=== PATIENT | male | born 1945 | race Caucasian/White ===

== ENCOUNTER 2018-01-12 05:41 | Inpatient (IN) | payer MEDICARE, BC ==
[2018-01-12] MEDS ORDERED: Levofloxacin 500 mg/D5W 100 ml Premix Bag ONE (06:14)
[2018-01-12] MEDS ORDERED: Heparin 5,000 UNITS/ML VIAL ONE (06:33)
[2018-01-12] MEDS ORDERED: Protamine Sulfate 50 MG/5 ML VIAL ONE (06:33)
[2018-01-12] MEDS ORDERED: Bupivacaine/Epinephrine 0.25% 30 ML VIAL ONE (06:33)
[2018-01-12 06:54] LABS: #Basophils 0.1 thou/uL (0.0-0.2); #Eosinphils 0.2 thou/uL (0.0-0.7); #Lymphocytes 1.8 thou/uL (1.20-3.40); #Monocytes 0.5 thou/uL (0.11-0.59); #Neutrophils 3.5 thou/uL (1.40-6.50); %Eosinophils 3.2 % (0.0-10.0); %Lymphocytes 29.4 % (21.0-51.0); %Monocytes 8.2 % (0.0-10.0); %Neutrophils 58.2 % (42.0-75.0); Mean Corpuscular HGB CONC 34.8 g/dL (32.0-36.0); Mean Corpuscular Hemoglobin 30.1 pg (27.0-31.0); Mean Corpuscular Volume 86.5 fl (80.0-94.0); Mean Platelet Volume 6.6 fL (7.4-10.4); Platelet Count 206 thou/uL (130-400); RBC Distribution Width 12.1 % (11.5-14.5); Red Blood Cell (RBC) Count 4.98 mill/uL (4.70-6.10)
[2018-01-12] MEDS ORDERED: Fentanyl 100 MCG/2 ML VIAL ONE ×2 (06:55→09:24)
[2018-01-12] MEDS ORDERED: Phenylephrine HCL 10 MG/ML VIAL ONE (06:55)
[2018-01-12] MEDS ORDERED: hydrALAZINE 20 MG/ML VIAL ONE (06:55)
[2018-01-12] MEDS ORDERED: Nitroglycerin 50 MG/250 ML BOT 0 ML ONE (06:55)
[2018-01-12 07:15] LABS: Anion Gap 13 mmol/L (10-20); BUN (Urea Nitrogen) 15 mg/dL (8.4-25.7); Calc. Creatinine Clearance 145 mL/min (70-130); Calcium 9.2 mg/dL (7.8-10.44); Carbon Dioxide 25 mmol/L (23-31); Chloride 107 mmol/L (98-107); Estimated GFR-MDRD Greater than 90; Glucose 103 mg/dL (80-115); Potassium 4.4 mmol/L (3.5-5.1); Sodium 141 mmol/L (136-145)
--- NOTE | 2018-01-12 09:47 | OP ---
DATE OF PROCEDURE: 01/12/2018 PREOPERATIVE DIAGNOSIS: Critical right carotid stenosis. POSTOPERATIVE DIAGNOSIS: Critical right carotid stenosis. PROCEDURE: Right carotid endarterectomy with bovine patch angioplasty. SURGEON: Jason Mcdonald M.D. BOLOGNA LACER: None. ANESTHESIA: General. ESTIMATED BLOOD LOSS: Less than 100. PROCEDURE IN DETAIL: After adequate anesthesia had been obtained, ultrasound was utilized, shoulder roll placed and head turned to the left. Table was rotated left. The patient prepped and draped. I ncision was made along the anterior border of the sternocleidomastoid muscle, dividing the platysma, rotating SCM laterally. Current common carotid artery was deep to the jugular vein and the space in the neck was quite deep as well. After controlling the common, internal and external carotid arterie s, visualizing the vagus nerve and avoiding it and not visualizing the hypoglossal nerve, the patient was heparinized, clamps applied, arteriotomy performed through a very critical stenosis and a 12-José nch shunt placed. Following this, endarterectomy was performed with nice tapering distally. There w as a small branch off the internal carotid artery posteriorly that did bleed during the case. Follow ing endarterectomy, the area was thoroughly irrigated and any loose debris removed and a bovine patch secured with a running 6-0 Prolene suture. Prior to completing the suture line, the shunt was remov ed, vessels back flushed and forward flushed and flow restored up the external and then internal anderson tid artery. Protamine was given to reverse the heparin partially and the wound was then irrigated an d closed in layers. The patient is to be taken to the ICU in guarded condition.
[2018-01-12] MEDS ORDERED: Morphine 4 MG/ML VIAL ONE (10:39)
[2018-01-12] MEDS ORDERED: Acetaminophen 325 MG TAB PO PRN (11:35)
[2018-01-12] MEDS ORDERED: Ondansetron HCl/PF 4 MG/2 ML Vial IVP PRN (11:35)
[2018-01-12] MEDS ORDERED: Phenylephrine 10 MG/NS 250 ML 250 ML IVPB PRN (11:35)
[2018-01-12] MEDS ORDERED: HYDROcodone/Acetaminophen 5/325 mg Tablet PO PRN (11:35)
[2018-01-12] MEDS ORDERED: Sodium Chloride 0.9% 1,000 ML IV SCH (11:35)
[2018-01-12] MEDS: Fentanyl 100 MCG/2 ML VIAL SLOW IVP PRN ×2 (12:56→17:43)
[2018-01-12 17:13] VITALS: BMI 31.4
[2018-01-13] MEDS ORDERED: Sterile Water 10 ML VIAL FS SCH (02:00)
[2018-01-13] MEDS ORDERED: Ziprasidone 20 MG VIAL IM SCH (02:00)
[2018-01-13] MEDS ORDERED: Ziprasidone 20 MG VIAL ONE (02:05)
[2018-01-13 04:24] VITALS: TEMP 98.2
--- NOTE | 2018-01-13 13:52 | DIS ---
HOSPITAL COURSE: This is a 72-year-old male with a critical right carotid stenosis that underwent en darterectomy on 01/12/2018. Postoperatively, he was neurologically intact. The night of surgery, he experienced some psychotic episode, perhaps related to his dementia and unfamiliar environment requi ring restraints and Geodon. The following day, the patient was resting comfortably, but became agita cindy easily. It was recommended that discharge to a familiar environment at home may be most benefici al and assisted care had been arranged by family. The patient will be discharged on, aspirin, atorva statin 20 mg a day. He had some mild blood pressure elevations in the hospital, possibly related to his hospitalization and no blood pressure medication will be prescribed at this time and family has b manda asked to check his blood pressures on a regular basis.
== END 2018-01-13 08:45 | disposition home or self-care (01) | DRG 39 ==
LOC: SURG A 05:41 → CCU 11:41
PROVIDERS: ADMIT Thoracic Surgery (Cardiothoracic Vascular Surgery); ATTEND Thoracic Surgery (Cardiothoracic Vascular Surgery)
PROC: 03CK0ZZ Extirpation of Matter from Right Internal Carotid Artery, Open Approach (ICD-10-PCS; principal; 2018-01-12)
PROC: 03UK0KZ Supplement Right Internal Carotid Artery with Nonautologous Tissue Substitute, Open Approach (ICD-10-PCS; 2018-01-12)
DX: I65.21 Occlusion and stenosis of right carotid artery (principal); G30.9 Alzheimer's disease, unspecified; F02.80 Dementia in other diseases classified elsewhere, unspecified severity, without behavioral disturbance, psychotic disturbance, mood disturbance, and anxiety; M10.9 Gout, unspecified; Z79.82 Long term (current) use of aspirin; I10 Essential (primary) hypertension
CPT/HCPCS: 80048; 85025; 93005; 93010; A4216; J0360; J1642; J1644; J1956; J2270; J2370; J2720; J3010; J3486; J7050

== ENCOUNTER 2018-08-17 14:59 | Emergency (ER) | payer MEDICARE, BC ==
[2018-08-17 16:32] LABS: #Basophils 0.1 thou/uL (0.0-0.2); #Eosinphils 0.2 thou/uL (0.0-0.7); #Lymphocytes 2.5 thou/uL (1.20-3.40); #Monocytes 0.6 thou/uL (0.11-0.59); #Neutrophils 6.5 thou/uL (1.40-6.50); %Basophils 0.7 % (0.0-1.0); %Eosinophils 1.8 % (0.0-10.0); %Lymphocytes 25.1 % (21.0-51.0); %Monocytes 6.3 % (0.0-10.0); %Neutrophils 66.1 % (42.0-75.0); Hemoglobin 15.2 g/dL (14.0-18.0); Mean Corpuscular HGB CONC 33.2 g/dL (32.0-36.0); Mean Corpuscular Hemoglobin 29.1 pg (27.0-31.0); Mean Corpuscular Volume 87.6 fL (78.0-98.0); Mean Platelet Volume 6.9 fL (7.4-10.4); Platelet Count 274 thou/uL (130-400); Red Blood Cell (RBC) Count 5.22 mill/uL (4.70-6.10); White Blood Cell (WBC) Count 9.8 thou/uL (4.8-10.8)
[2018-08-17 16:52] LABS: Acetaminophen Less than 6.0 mcg/mL (10.0-30.0); Alcohol Less than 10 mg/dL (Less than 10); Salicylate Less than 8.0 mg/dL (15.0-30.0)
[2018-08-17 16:54] LABS: ALT (SGPT) 28 U/L (8-55); AST (SGOT) 25 U/L (5-34); Albumin 4.5 g/dL (3.4-4.8); Alkaline Phosphatase 80 U/L (40-150); Anion Gap 15 mmol/L (10-20); BUN (Urea Nitrogen) 26 mg/dL (8.4-25.7); Bilirubin, Total 0.4 mg/dL (0.2-1.2); CK (CPK) 243 U/L (30-200); Calc. Creatinine Clearance 0 mL/min (70-130); Calcium 9.9 mg/dL (7.8-10.44); Carbon Dioxide 20 mmol/L (23-31); Chloride 107 mmol/L (98-107); Estimated GFR-MDRD 85; Globulin 2.8 g/dL (2.4-3.5); Glucose 99 mg/dL (83-110); Potassium 4.3 mmol/L (3.5-5.1); Protein, Total 7.3 g/dL (5.8-8.1); Sodium 138 mmol/L (136-145)
--- NOTE | 2018-08-17 19:11 | CT ---
CT BRAIN 08/17/18 HISTORY: Altered mental status. Noncontrast enhanced CT brain obtained. CT images demonstrate cortical atrophy. No evidence of acute intracranial masses, hemorrhages, stroke s or contusions seen. IMPRESSION: Cortical atrophy and deep white matter ischemic changes. No acute intracranial abnormalities seen. POS: [facility]
[2018-08-17] MEDS ORDERED: Ziprasidone 20 MG CAP ONE (20:07)
[2018-08-17] MEDS ORDERED: Ziprasidone 20 MG CAP PO SCH (20:15)
[2018-08-17] MEDS ORDERED: Lorazepam 1 MG TAB ONE (21:55)
== END 2018-08-18 06:26 ==
LOC: ERS 14:59
DX: F23 Brief psychotic disorder (principal); F03.90 Unspecified dementia, unspecified severity, without behavioral disturbance, psychotic disturbance, mood disturbance, and anxiety
CPT/HCPCS: 36415; 70450; 80053; 80307; 82550; 84443; 85025; 93005

== ENCOUNTER 2019-04-22 10:41 | Emergency (ER) | payer MEDICARE, BC ==
[2019-04-22] MEDS ORDERED: Ketorolac Tromethamine 30 MG/ML VIAL ONE (11:36)
== END 2019-04-22 11:57 | disposition home or self-care (01) ==
LOC: ERS 10:41
DX: S39.012A Strain of muscle, fascia and tendon of lower back, initial encounter (principal); F03.90 Unspecified dementia, unspecified severity, without behavioral disturbance, psychotic disturbance, mood disturbance, and anxiety; X50.9XXA Other and unspecified overexertion or strenuous movements or postures, initial encounter
CPT/HCPCS: 96372; 99283; J1885

== ENCOUNTER 2019-05-03 09:22 | Observation (INO) | payer MEDICARE, BC ==
[2019-05-03 09:58] LABS: #Eosinphils 0.1 thou/uL (0.0-0.7); #Lymphocytes 1.2 thou/uL (1.20-3.40); #Monocytes 0.6 thou/uL (0.11-0.59); #Neutrophils 9.5 thou/uL (1.40-6.50); %Basophils 0.3 % (0.0-1.0); %Eosinophils 0.5 % (0.0-10.0); %Lymphocytes 10.4 % (21.0-51.0); %Monocytes 5.1 % (0.0-10.0); %Neutrophils 83.7 % (42.0-75.0); Mean Corpuscular HGB CONC 33.5 g/dL (32.0-36.0); Mean Corpuscular Hemoglobin 29.2 pg (27.0-31.0); Mean Corpuscular Volume 86.9 fL (78.0-98.0); Mean Platelet Volume 7.1 fL (7.4-10.4); Platelet Count 228 thou/uL (130-400); RBC Distribution Width 11.7 % (11.5-14.5); Red Blood Cell (RBC) Count 5.14 mill/uL (4.70-6.10); White Blood Cell (WBC) Count 11.4 thou/uL (4.8-10.8)
[2019-05-03] MEDS ORDERED: ISOVUE-370 76%-LOCM 1 ML ONE (10:02)
[2019-05-03 10:11] LABS: ALT (SGPT) 18 U/L (8-55); AST (SGOT) 23 U/L (5-34); Albumin 4.1 g/dL (3.4-4.8); Alcohol Less than 10 mg/dL (Less than 10); Alkaline Phosphatase 82 U/L (40-110); Anion Gap 22 mmol/L (10-20); BUN (Urea Nitrogen) 17 mg/dL (8.4-25.7); Bilirubin, Total 0.5 mg/dL (0.2-1.2); Calc. Creatinine Clearance 0 mL/min (70-130); Calcium 9.4 mg/dL (7.8-10.44); Carbon Dioxide 19 mmol/L (23-31); Chloride 103 mmol/L (98-107); Estimated GFR-MDRD 55; Globulin 2.7 g/dL (2.4-3.5); Glucose 149 mg/dL (83-110); Lipase 13 U/L (8-78); Potassium 3.8 mmol/L (3.5-5.1); Protein, Total 6.8 g/dL (5.8-8.1); Sodium 140 mmol/L (136-145)
--- NOTE | 2019-05-03 10:33 | RAD ---
Exam: Chest one view HISTORY:Patient found down Comparison: None FINDINGS: Cardiac silhouette:Cardiomegaly. Aorta: Unremarkable Pulmonary vessels: Normal Costophrenic angles: Clear LUNGS: Increased density projecting posterior to the right heart border. Pneumothorax: None Osseous abnormalities: None IMPRESSION: 1. Cardiomegaly. 2. Increased density projecting posterior the right heart border. 2 view chest radiograph would be be neficial.
[2019-05-03] MEDS ORDERED: Adacel (T-DAP) 0.5 ML SYRINGE ONE (10:41)
--- NOTE | 2019-05-03 10:43 | CT ---
CT Brain WO Con HISTORY: Altered mental status. Patient found lying an injection. COMPARISON: 08/17/2018 study. FINDINGS: There is generalized ventricular and sulcal prominence with decreased attenuation to the pe riventricular white matter consistent with some chronic white matter change. There are punctate foci of air which are felt to be within venous structures these include areas anterior to both maxill yoana sinuses and adjacent to the condyles of the mandible. In addition there is air which is probably within the venous plexus of the cavernous sinus region and some air density seen along the r ight tentorium and in what is probably epidural veins at the level of C1. This is probably all iatrogenic related to IV access. Mucosal changes seen within the right maxillary sinus. The mastoid air cells are clear. IMPRESSION: No acute intracranial abnormalities. Scattered foci of air density which are probably rel ated to air within venous structures probably iatrogenic in nature.
--- NOTE | 2019-05-03 10:46 | CT ---
CT Cervical Spine WO Con HISTORY: Altered mental status. Patient found lying] dense. Neck pain. Dementia. COMPARISON: None. FINDINGS: The bones appear demineralized. There is degenerative disc narrowing at C5-6 and C6-7 and d egenerative facet changes along the course of the cervical spine. There is no evidence of any significant canal narrowing. There is marked right and moderately severe left foraminal narrowing at C5-6. There is no CT evidence of fracture. The lung apices are clear. Air density is seen within the epidural space and within the soft tissues of the neck, this is probab ly all within venous structures and probably iatrogenic in nature. IMPRESSION: 1. No CT evidence of fracture the cervical 2. Small foci of air density which are probably within venous structures.
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
[2019-05-03 12:23] LABS: Lactic Acid 3.3 mmol/L (0.5-2.2)
[2019-05-03 12:28] LABS: Acetaminophen Less than 6.0 mcg/mL (10.0-30.0); Alcohol Less than 10 mg/dL (Less than 10); Salicylate Less than 8.0 mg/dL (15.0-30.0)
[2019-05-03 12:51] LABS: Bilirubin Negative (Negative); Blood, Urine Negative (Negative); Clarity Turbid (Clear); Glucose, Urine (Dipstick) Normal (Negative); Leukocyte Negative Leu/uL (Negative); Nitrite Negative (Negative); Protein, Urine (Dipstick) 100 mg/dL (Neg-Trace); Squamous Epithelial 0-3 HPF (0-3)
[2019-05-03 13:01] LABS: Cocaine Metabolite Screen Not Detected (NotDetected); Medtox Reader # READER 4; Methamphetamine Not Detected (NotDetected); Opiate Screen Not Detected (NotDetected); Phencyclidine (PCP) Not Detected (NotDetected); THC/Cannabinoid Screen Not Detected (NotDetected)
[2019-05-03 13:02] LABS: Amphetamine Not Detected (NotDetected); Barbiturates Screen Not Detected (NotDetected); Benzodiazepine Screen Not Detected (NotDetected); Medtox Control Line Valid? VALID (VALID); Methadone Not Detected (NotDetected); Oxycodone Screen Not Detected (NotDetected); Tricyclic Screen Not Detected (NotDetected)
[2019-05-03 13:19] LABS: Bacteria/HPF Rare-Few HPF (None Seen); Sperm/HPF 2+ HPF (None Seen)
[2019-05-03] MEDS ORDERED: cefTRIAXone\\ROCEPHIN 1 GM VIAL ONE (15:35)
[2019-05-03] MEDS ORDERED: Ibuprofen 800 MG TAB ONE (15:35)
[2019-05-03] MEDS ORDERED: Ketorolac Tromethamine 30 MG/ML VIAL ONE (15:52)
[2019-05-03] MEDS ORDERED: Aspirin Chewable 81 MG TAB ONE (17:03)
[2019-05-03 18:09] LABS: Lactic Acid 2.3 mmol/L (0.5-2.2)
[2019-05-03] MEDS ORDERED: Sodium Chloride 0.9% 1,000 ML IV SCH (19:15)
[2019-05-03] MEDS ORDERED: Ibuprofen 800 MG TAB PO PRN (19:47)
[2019-05-03] MEDS ORDERED: Ondansetron PF 4 MG/2 ML Vial IVP PRN (19:47)
[2019-05-03] MEDS ORDERED: Ondansetron ODT 4 MG TAB SL PRN (19:47)
[2019-05-03] MEDS ORDERED: Acetaminophen 325 MG TAB PO PRN (19:47)
[2019-05-03 20:14] VITALS: BMI 27.8
[2019-05-03] MEDS ORDERED: Senokot S 8.6-50 MG TAB PO PRN (21:06)
[2019-05-03 23:18] LABS: Troponin I 0.087 ng/mL (< 0.028)
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
[2019-05-04] MEDS: Acetaminophen 325 MG TAB PO PRN ×2 (03:40→09:37)
[2019-05-04 05:03] LABS: #Eosinphils 0.2 thou/uL (0.0-0.7); #Lymphocytes 1.5 thou/uL (1.20-3.40); #Monocytes 0.7 thou/uL (0.11-0.59); #Neutrophils 4.9 thou/uL (1.40-6.50); %Basophils 0.6 % (0.0-1.0); %Eosinophils 2.6 % (0.0-10.0); %Lymphocytes 20.6 % (21.0-51.0); %Monocytes 8.9 % (0.0-10.0); %Neutrophils 67.3 % (42.0-75.0); Hemoglobin 12.5 g/dL (14.0-18.0); Mean Corpuscular HGB CONC 33.9 g/dL (32.0-36.0); Mean Corpuscular Hemoglobin 29.6 pg (27.0-31.0); Mean Corpuscular Volume 87.1 fL (78.0-98.0); Platelet Count 157 thou/uL (130-400); RBC Distribution Width 11.7 % (11.5-14.5); Red Blood Cell (RBC) Count 4.23 mill/uL (4.70-6.10); White Blood Cell (WBC) Count 7.3 thou/uL (4.8-10.8)
[2019-05-04 05:24] LABS: Anion Gap 10 mmol/L (10-20); BUN (Urea Nitrogen) 18 mg/dL (8.4-25.7); Calc. Creatinine Clearance 107 mL/min (70-130); Calcium 8.5 mg/dL (7.8-10.44); Carbon Dioxide 26 mmol/L (23-31); Chloride 107 mmol/L (98-107); Estimated GFR-MDRD Greater than 90; Glucose 98 mg/dL (83-110); Potassium 3.8 mmol/L (3.5-5.1); Sodium 139 mmol/L (136-145)
[2019-05-04] MEDS: Enoxaparin Sodium 40 MG/0.4 ML SYRINGE SC SCH (09:36)
[2019-05-04] MEDS: Famotidine 20 MG TAB PO SCH ×2 (09:36→20:13)
[2019-05-04] MEDS ORDERED: Lorazepam 2 MG/ML VIAL SLOW IVP SCH (12:00)
[2019-05-04] MEDS: cefTRIAXone\\ROCEPHIN 1 GM in Sodium Chloride 0.9% 100 ML IVPB SCH (14:57)
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
[2019-05-04] MEDS ORDERED: Aspirin 81 mg Enteric Coated Tablet PO SCH (16:45)
[2019-05-04] MEDS ORDERED: Lorazepam 2 MG/ML VIAL SLOW IVP PRN (17:13)
[2019-05-05] MEDS ORDERED: hydrALAZINE 20 MG/ML VIAL SLOW IVP PRN (05:54)
[2019-05-05] MEDS ORDERED: risperiDONE 0.25 MG TAB PO SCH (09:00)
[2019-05-05] MEDS ORDERED: Non-Formulary Item 1 EACH (Risperidone [Risperdal] 0.5 MG) PO SCH (09:00)
[2019-05-05] MEDS ORDERED: Aspirin 81 mg Enteric Coated Tablet PO SCH (09:00)
[2019-05-05] MEDS: Enoxaparin Sodium 40 MG/0.4 ML SYRINGE SC SCH (10:26)
[2019-05-05] MEDS: Famotidine 20 MG TAB PO SCH (10:26)
[2019-05-05] MEDS: cefTRIAXone\\ROCEPHIN 1 GM in Sodium Chloride 0.9% 100 ML IVPB SCH (13:02)
[2019-05-05 15:44] VITALS: TEMP 98
[2019-05-05 17:48] VITALS: BP 135/63
[2019-05-05] MEDS ORDERED: risperiDONE 1 MG TAB PO SCH (21:00)
[2019-05-05] MEDS ORDERED: Pravastatin Sodium 40 MG TAB PO SCH (21:00)
[2019-05-05] MEDS ORDERED: Donepezil HCl 10 MG TAB PO SCH (21:00)
[2019-05-05] MEDS ORDERED: Atorvastatin Calcium 10 MG TAB PO SCH (21:00)
--- NOTE | 2019-05-07 23:23 | EKG ---
Test Reason : Blood Pressure : / mmHG Vent. Rate : 076 BPM Atrial Rate : 076 BPM P-R Int : 180 ms QRS Dur : 096 ms QT Int : 388 ms P-R-T Axes : 049 015 -16 degrees QTc Int : 436 ms Normal sinus rhythm Nonspecific T wave abnormality Abnormal ECG Confirmed by NICOLASA FUENTES DO ([id number]), book editor [address]ACIA ([id number]) on 05/07/2019 11:22:55 PM Referred By: Confirmed By:NICOLASA FUENTES DO
== END 2019-05-05 18:00 ==
LOC: ERS 09:22 → 2NO 20:06
PROVIDERS: ADMIT Internal Medicine; ATTEND Internal Medicine
DX: F03.91 Unspecified dementia, unspecified severity, with behavioral disturbance (principal); F05 Delirium due to known physiological condition; G91.2 (Idiopathic) normal pressure hydrocephalus; T14.8XXA Other injury of unspecified body region, initial encounter; M19.90 Unspecified osteoarthritis, unspecified site; E78.5 Hyperlipidemia, unspecified; K44.9 Diaphragmatic hernia without obstruction or gangrene; I51.7 Cardiomegaly; M50.322 Other cervical disc degeneration at C5-C6 level; Z79.82 Long term (current) use of aspirin; Z79.899 Other long term (current) drug therapy; Z88.0 Allergy status to penicillin; W19.XXXA Unspecified fall, initial encounter; Z66 Do not resuscitate
CPT/HCPCS: 36415; 36416; 70450; 71045; 71260; 72125; 74177; 80048; 80053; 80306; 80307; 81003; 81015; 82140; 82550; 82553; 83605; 83690; 84443; 84484; 85025; 87040; 87086; 90471; 90715; 93005; 93306; 96360; 96361; 96365; 96372; 96375; 96376; G0378; J0360; J0696; J1650; J1885; J2060; J3490; Q9966

== ENCOUNTER 2019-05-14 10:18 | Observation (INO) | payer MEDICARE, BC ==
[2019-05-14 10:48] LABS: #Eosinphils 0.1 thou/uL (0.0-0.7); #Lymphocytes 1.6 thou/uL (1.20-3.40); #Monocytes 0.6 thou/uL (0.11-0.59); #Neutrophils 6.4 thou/uL (1.40-6.50); %Basophils 0.4 % (0.0-1.0); %Eosinophils 1.6 % (0.0-10.0); %Lymphocytes 17.8 % (21.0-51.0); %Monocytes 7.2 % (0.0-10.0); Mean Corpuscular HGB CONC 34.2 g/dL (32.0-36.0); Mean Corpuscular Hemoglobin 29.9 pg (27.0-31.0); Mean Corpuscular Volume 87.5 fL (78.0-98.0); Mean Platelet Volume 6.7 fL (7.4-10.4); Platelet Count 272 thou/uL (130-400); RBC Distribution Width 11.8 % (11.5-14.5); White Blood Cell (WBC) Count 8.7 thou/uL (4.8-10.8)
--- NOTE | 2019-05-14 10:50 | RAD ---
RADIOGRAPH CHEST 1 VIEW: DATE: 05/14/2019 HISTORY: 74-year-old male with chest pain FINDINGS: There is no airspace density, pulmonary edema, or pneumothorax. The lateral costophrenic angles are n ot effaced. IMPRESSION: No acute pulmonary findings.
[2019-05-14 11:09] LABS: ALT (SGPT) 36 U/L (8-55); AST (SGOT) 24 U/L (5-34); Albumin 4.1 g/dL (3.4-4.8); Alkaline Phosphatase 103 U/L (40-110); Anion Gap 12 mmol/L (10-20); BUN (Urea Nitrogen) 22 mg/dL (8.4-25.7); Bilirubin, Total 0.4 mg/dL (0.2-1.2); Calc. Creatinine Clearance 0 mL/min (70-130); Calcium 9.6 mg/dL (7.8-10.44); Carbon Dioxide 28 mmol/L (23-31); Chloride 102 mmol/L (98-107); Estimated GFR-MDRD 61; Globulin 2.6 g/dL (2.4-3.5); Glucose 99 mg/dL (83-110); Potassium 4.5 mmol/L (3.5-5.1); Protein, Total 6.7 g/dL (5.8-8.1); Sodium 137 mmol/L (136-145)
[2019-05-14] MEDS ORDERED: Nitroglycerin 2% Ointment 1 INCH/1 GM Packet ONE (11:20)
[2019-05-14] MEDS ORDERED: Aspirin Chewable 81 MG TAB ONE (11:20)
[2019-05-14] MEDS ORDERED: Lorazepam 2 MG/ML VIAL ONE (13:26)
[2019-05-14 14:42] LABS: Troponin I 0.019 ng/mL (< 0.028)
[2019-05-14] MEDS ORDERED: Ondansetron ODT 4 MG TAB SL PRN (15:38)
[2019-05-14] MEDS ORDERED: Ondansetron PF 4 MG/2 ML Vial IVP PRN (15:38)
[2019-05-14 17:07] VITALS: BMI 28.0
[2019-05-14 18:20] LABS: Troponin I 0.018 ng/mL (< 0.028)
[2019-05-14] MEDS: Haloperidol Lactate 5 MG/ML VIAL SLOW IVP PRN (21:47)
[2019-05-15] MEDS ORDERED: Non-Formulary Item 1 EACH (Risperidone [Risperdal] 0.5 MG) PO SCH (09:00)
[2019-05-15] MEDS ORDERED: risperiDONE 0.25 MG TAB PO SCH (09:00)
[2019-05-15] MEDS ORDERED: FLU VACC TS2019-20(65YR UP)/PF 180 MCG/0.5 ML SYRINGE IM ONE (09:00)
[2019-05-15] MEDS ORDERED: Prevnar 13-Val Conj/PF 0.5 ML SYRINGE IM ONE (09:00)
[2019-05-15] MEDS ORDERED: Nitroglycerin 0.4 MG TAB (25 Tab Bottle) PO PRN (09:16)
[2019-05-15] MEDS: risperiDONE 0.25 MG TAB PO SCH ×2 (09:24→16:44)
[2019-05-15] MEDS: Aspirin 325 mg Enteric Coated Tablet PO SCH (09:24)
[2019-05-15] MEDS: Haloperidol Lactate 5 MG/ML VIAL SLOW IVP PRN (09:46)
[2019-05-15] MEDS ORDERED: Haloperidol Lactate 5 MG/ML VIAL IM SCH (13:00)
[2019-05-15] MEDS ORDERED: Lorazepam 2 MG/ML VIAL SLOW IVP SCH (13:30)
--- NOTE | 2019-05-15 15:57 | HP ---
PRIMARY CARE PROVIDER: Bob Grant MD CHIEF COMPLAINT: Chest pain. HISTORY OF PRESENT ILLNESS: Mr. Jay is a pleasant 74-year-old gentleman who was seen at [facility] on May 15, 2019. Please note, the patient is unable to provide any significant history secondary to dementia. Collateral history was obtained from review of medical records, discussion with emergency room physician, and discussion with son by the bedside. Mr. Jay reportedly complained of chest pressure over the last week. There is no history of any vomiting. There is no history of shortness of breath. The patient was transferred to the emergency room because of chest pain. REVIEW OF SYSTEMS: Review of systems could not be completed because of the patient's cognitive status. PAST MEDICAL HISTORY: Dementia, normal-pressure hydrocephalus, carotid artery stenosis, osteoarthritis, and dyslipidemia. PAST SURGICAL HISTORY: Carotid artery surgery. FAMILY HISTORY: Unable to obtain. SOCIAL HISTORY: No history of tobacco use, alcohol use, or recreational drug use. He lives at [facility]. ALLERGIES: PENICILLIN. HOME MEDICATIONS: 1. Aspirin 325 mg daily. 2. Donepezil 10 mg at bedtime. 3. Memantine 10 mg 2 times a day. 4. Pravastatin 40 mg at bedtime. 5. Risperdal 0.5 mg at noon and in the morning and 1 mg at bedtime. CODE STATUS: I discussed his code status. He is DNAR. PHYSICAL EXAMINATION: GENERAL: Mr. Jay is awake and alert, not in acute distress. VITAL SIGNS: Blood pressure is 126/66, pulse 64, respiratory rate 14, and oxygen saturation 95% on room air. He is afebrile. EYES: No scleral icterus, no conjunctival pallor. ENT: Moist mucosal membranes. No oropharyngeal erythema or exudates. NECK: Supple, nontender, trachea is midline. RESPIRATORY: Accessory muscles of breathing are not active. Chest wall movements are symmetric bilaterally. LUNGS: Clear to auscultation without wheeze, rhonchi, or crepitations. CARDIOVASCULAR: S1 and S2 are heard, regular. Peripheral pulses palpable. NEUROLOGIC: Cranial nerves 2 through 12 are intact. MUSCULOSKELETAL: The patient is moving all 4 extremities. SKIN: No rashes or subcutaneous nodules. LYMPHATIC: No cervical lymphadenopathy. PSYCHIATRIC: Normal mood, normal affect, the patient is oriented to person only. LABORATORY DATA: Mr. Jay's labs and investigations were reviewed. I reviewed his electrocardiogram, which shows normal sinus rhythm, no ST changes to suggest an acute coronary syndrome. I also reviewed his chest x-ray, which does not show any pulmonary infiltrates. He has an unremarkable CBC, normal comprehensive metabolic profile, normal lipase, and troponin I negative x3. ASSESSMENT AND PLAN: Mr. Jay is a pleasant 74-year-old gentleman who was seen at [facility] on May 15, 2019. His problem list includes: 1. Chest pain: Mr. Jay reportedly had chest pain over the last week. He denies any current chest pain. He will be admitted to the hospital on observation status for telemetry monitoring and stress test. We will continue him on aspirin. 2. Dementia: Continue Namenda. 3. Dyslipidemia: Continue Lipitor. 4. Carotid artery disease, status post surgery, stable. Many thanks for allowing me to participate in your patient's care. Please feel free to contact me with any questions or concerns. LEVEL OF RISK: High. LEVEL OF COMPLEXITY: High. Job ID: [id number]
--- NOTE | 2019-05-15 16:13 | NM ---
EXAM: Nuclear medicine cardiac perfusion examination with ejection fraction HISTORY: Chest pain TECHNIQUE: Rest images: 9.6 mCi technetium 99m sestamibi Stress images: 28.4 mCi of technetium 9M sestamibi; Lexiscan COMPARISON: None FINDINGS: Tomographic images: No fixed or reversible perfusion defects. Gated images: Normal wall motion and ejection fraction of 56%. EDV: 100 mL LHR: 0.4 TID: 1.1 IMPRESSION: No evidence of ischemia
[2019-05-15] MEDS: Acetaminophen 325 MG TAB PO PRN ×2 (17:43→18:16)
[2019-05-15] MEDS ORDERED: Regadenoson 0.4 MG/5 ML SYRINGE ONE (19:57)
[2019-05-15] MEDS: Atorvastatin Calcium 10 MG TAB PO SCH (20:22)
[2019-05-15] MEDS: risperiDONE 1 MG TAB PO SCH (20:22)
[2019-05-15] MEDS: Donepezil HCl 10 MG TAB PO SCH (20:22)
[2019-05-16] MEDS: risperiDONE 1 MG TAB PO SCH (02:31)
[2019-05-16] MEDS: Donepezil HCl 10 MG TAB PO SCH (02:31)
[2019-05-16] MEDS: Atorvastatin Calcium 10 MG TAB PO SCH (02:31)
[2019-05-16 04:56] LABS: #Basophils 0.1 thou/uL (0.0-0.2); #Eosinphils 0.3 thou/uL (0.0-0.7); #Lymphocytes 1.2 thou/uL (1.20-3.40); #Monocytes 0.8 thou/uL (0.11-0.59); #Neutrophils 8.1 thou/uL (1.40-6.50); %Basophils 0.7 % (0.0-1.0); %Eosinophils 2.7 % (0.0-10.0); %Lymphocytes 11.6 % (21.0-51.0); %Monocytes 7.7 % (0.0-10.0); %Neutrophils 77.3 % (42.0-75.0); Hemoglobin 13.4 g/dL (14.0-18.0); Mean Corpuscular Hemoglobin 29.7 pg (27.0-31.0); Mean Corpuscular Volume 87.5 fL (78.0-98.0); Mean Platelet Volume 6.5 fL (7.4-10.4); Platelet Count 234 thou/uL (130-400); RBC Distribution Width 11.8 % (11.5-14.5); Red Blood Cell (RBC) Count 4.51 mill/uL (4.70-6.10); White Blood Cell (WBC) Count 10.5 thou/uL (4.8-10.8)
[2019-05-16 05:14] LABS: Anion Gap 12 mmol/L (10-20); BUN (Urea Nitrogen) 19 mg/dL (8.4-25.7); Calc. Creatinine Clearance 97 mL/min (70-130); Calcium 9.1 mg/dL (7.8-10.44); Carbon Dioxide 28 mmol/L (23-31); Chloride 102 mmol/L (98-107); Estimated GFR-MDRD 82; Glucose 94 mg/dL (83-110); Potassium 4.1 mmol/L (3.5-5.1); Sodium 138 mmol/L (136-145)
[2019-05-16] MEDS: Haloperidol Lactate 5 MG/ML VIAL SLOW IVP PRN (07:15)
[2019-05-16] MEDS: Aspirin 325 mg Enteric Coated Tablet PO SCH (10:03)
[2019-05-16] MEDS: risperiDONE 0.25 MG TAB PO SCH (10:03)
--- NOTE | 2019-05-16 10:51 | CT ---
Exam: CT angiogram of the chest HISTORY: Chest pain. Elevated d-dimer. COMPARISON: None TECHNIQUE: CT angiogram of the chest is performed in the axial plane. Three-dimensional reformatted i mages are submitted for interpretation FINDINGS: Mediastinum: No mass, lymphadenopathy or hematoma. HEART: Enlarged. No significant pericardial fluid. Aorta: No aneurysm or dissection Upper solid abdominal viscera: No abnormality enhancement. Trachea and central bronchi: Patent Pleural spaces: No effusion Lung parenchyma: Patchy groundglass opacities. Dependent atelectatic changes both lower lobes. Pneumothorax: None Osseous structures: No lytic or blastic lesions Pulmonary arteries: Adequate contrast opacification pulmonary arterial system to the level of segment al arteries. No filling defect to suggest pulmonary embolism IMPRESSION:No evidence of pulmonary artery embolism to the level of segmental arteries.
[2019-05-16 11:46] VITALS: BP 124/60; TEMP 98.3
--- NOTE | 2019-05-16 21:49 | DIS ---
DATE OF ADMISSION: 05/14/2019 DATE OF DISCHARGE: 05/16/2019 PRIMARY CARE PROVIDER: Bob Grant MD DISCHARGE DIAGNOSES: 1. Chest pain. 2. Chest pain most likely secondary to musculoskeletal etiology. DISCHARGE MEDICATIONS: No change was made to his pre-admission home medications as dictated on my history and physical note dated May 15, 2019. HOSPITAL COURSE: Mr. Jay is a pleasant 74-year-old gentleman, who was admitted to [facility] on May 15, 2019, for chest pain. He had a nuclear stress test, which did not show any evidence of ischemia. He had an elevated D-dimer. CT angiogram of the chest did not show any evidence of pulmonary artery embolism. CONDITION OF PATIENT ON THE DAY OF DISCHARGE: Stable. I assessed Mr. Jay on the day of discharge. He denies any chest pain. Vital signs are stable. S1 and S2 are heard, regular. Lungs are clear to auscultation bilaterally. Post discharge followup: The patient is advised to follow up with primary care provider in 1 weeks' time. Many thanks for allowing me to participate in your patient's care. Please feel free to contact me with any questions or concerns. DISCHARGE DESTINATION: Home. Job ID: [id number]
== END 2019-05-16 12:51 | disposition home or self-care (01) ==
LOC: ERS 10:18 → 2NO 15:21
PROVIDERS: ADMIT Internal Medicine Nephrology; ATTEND Internal Medicine Nephrology
DX: R07.89 Other chest pain (principal); F03.90 Unspecified dementia, unspecified severity, without behavioral disturbance, psychotic disturbance, mood disturbance, and anxiety; G91.2 (Idiopathic) normal pressure hydrocephalus; I65.29 Occlusion and stenosis of unspecified carotid artery; M19.90 Unspecified osteoarthritis, unspecified site; E78.5 Hyperlipidemia, unspecified; R79.1 Abnormal coagulation profile; Z66 Do not resuscitate; Z79.82 Long term (current) use of aspirin; Z79.899 Other long term (current) drug therapy; Z88.0 Allergy status to penicillin
CPT/HCPCS: 71045; 71275; 78452; 80048; 80053; 83690; 84484 ×2; 85025 ×2; 85379; 90662; 90670; 93005; 93017; 96372; 96374; 96375; 96376 ×2; 99285; A9500; G0008; G0009; G0378 ×5; 36415; 90471; J1630; J2060; J2785

== ENCOUNTER → 2019-05-18 | Emergency (ER) | payer MEDICARE, BC ==
--- NOTE | 2019-05-18 15:26 | RAD ---
Exam: Chest one view HISTORY:Dyspnea. One week of shortness of breath Comparison: 05/14/2019 FINDINGS: Cardiac silhouette: Normal Aorta: Unremarkable Pulmonary vessels: Normal Costophrenic angles: Clear LUNGS: No masses or consolidation. Pneumothorax: None Osseous abnormalities: None IMPRESSION: No acute cardiopulmonary process.
[2019-05-18 15:30] LABS: #Basophils 0.1 thou/uL (0.0-0.2); #Eosinphils 0.1 thou/uL (0.0-0.7); #Lymphocytes 1.3 thou/uL (1.20-3.40); #Monocytes 0.6 thou/uL (0.11-0.59); #Neutrophils 5.3 thou/uL (1.40-6.50); %Basophils 0.8 % (0.0-1.0); %Eosinophils 1.8 % (0.0-10.0); %Lymphocytes 17.1 % (21.0-51.0); %Monocytes 7.4 % (0.0-10.0); %Neutrophils 72.9 % (42.0-75.0); Hemoglobin 13.1 g/dL (14.0-18.0); Mean Corpuscular HGB CONC 33.5 g/dL (32.0-36.0); Mean Corpuscular Volume 86.6 fL (78.0-98.0); Mean Platelet Volume 6.7 fL (7.4-10.4); Platelet Count 268 thou/uL (130-400); RBC Distribution Width 11.8 % (11.5-14.5); Red Blood Cell (RBC) Count 4.51 mill/uL (4.70-6.10); White Blood Cell (WBC) Count 7.3 thou/uL (4.8-10.8)
[2019-05-18 15:52] LABS: ALT (SGPT) 33 U/L (8-55); AST (SGOT) 20 U/L (5-34); Albumin 3.9 g/dL (3.4-4.8); Alkaline Phosphatase 107 U/L (40-110); Anion Gap 13 mmol/L (10-20); BUN (Urea Nitrogen) 19 mg/dL (8.4-25.7); Bilirubin, Total 0.3 mg/dL (0.2-1.2); CK (CPK) 229 U/L (30-200); Calc. Creatinine Clearance 0 mL/min (70-130); Calcium 8.8 mg/dL (7.8-10.44); Carbon Dioxide 25 mmol/L (23-31); Chloride 104 mmol/L (98-107); Estimated GFR-MDRD Greater than 90; Globulin 2.5 g/dL (2.4-3.5); Glucose 104 mg/dL (83-110); Lipase 23 U/L (8-78); Potassium 4.2 mmol/L (3.5-5.1); Protein, Total 6.4 g/dL (5.8-8.1); Sodium 138 mmol/L (136-145)
== END ==
LOC: ERS 14:40
DX: R07.89 Other chest pain (principal); G91.2 (Idiopathic) normal pressure hydrocephalus; E86.0 Dehydration; R03.0 Elevated blood-pressure reading, without diagnosis of hypertension; F03.90 Unspecified dementia, unspecified severity, without behavioral disturbance, psychotic disturbance, mood disturbance, and anxiety; Z79.899 Other long term (current) drug therapy; Z79.82 Long term (current) use of aspirin
CPT/HCPCS: 36415; 71045; 80053; 82550; 83605; 83690; 83880; 84484; 85025; 87040; 93005; 96360

== ENCOUNTER 2019-05-23 09:47 | Emergency (ER) | payer MEDICARE, BC ==
--- NOTE | 2019-05-23 10:19 | CT ---
CT Brain WO Con History: Altered mental status Comparison: CT brain May 03, 2019 Findings: Ventricular size continues to be enlarged. No acute hemorrhage or infarct. No midline shift or mass effect. Paranasal sinuses and mastoids are clear. Calvarium is intact. Globes are intact. Impression: No acute intracranial abnormality. No significant change.
[2019-05-23 10:26] LABS: #Lymphocytes 1.1 thou/uL (1.20-3.40); #Monocytes 0.8 thou/uL (0.11-0.59); #Neutrophils 11.1 thou/uL (1.40-6.50); %Basophils 0.1 % (0.0-1.0); %Eosinophils 0.1 % (0.0-10.0); %Lymphocytes 8.1 % (21.0-51.0); %Monocytes 6.4 % (0.0-10.0); %Neutrophils 85.3 % (42.0-75.0); Hemoglobin 13.8 g/dL (14.0-18.0); Mean Corpuscular HGB CONC 32.6 g/dL (32.0-36.0); Mean Corpuscular Hemoglobin 28.7 pg (27.0-31.0); Mean Corpuscular Volume 88.2 fL (78.0-98.0); Mean Platelet Volume 6.5 fL (7.4-10.4); Platelet Count 240 thou/uL (130-400); RBC Distribution Width 11.8 % (11.5-14.5); Red Blood Cell (RBC) Count 4.79 mill/uL (4.70-6.10); White Blood Cell (WBC) Count 13.1 thou/uL (4.8-10.8)
[2019-05-23 10:52] LABS: ALT (SGPT) 25 U/L (8-55); AST (SGOT) 41 U/L (5-34); Albumin 4.2 g/dL (3.4-4.8); Alkaline Phosphatase 120 U/L (40-110); Anion Gap 12 mmol/L (10-20); BUN (Urea Nitrogen) 20 mg/dL (8.4-25.7); Bilirubin, Total 0.5 mg/dL (0.2-1.2); Calc. Creatinine Clearance 0 mL/min (70-130); Calcium 9.2 mg/dL (7.8-10.44); Carbon Dioxide 26 mmol/L (23-31); Chloride 104 mmol/L (98-107); Estimated GFR-MDRD Greater than 90; Globulin 2.3 g/dL (2.4-3.5); Glucose 100 mg/dL (83-110); Potassium 4.4 mmol/L (3.5-5.1); Protein, Total 6.5 g/dL (5.8-8.1); Sodium 138 mmol/L (136-145)
[2019-05-23 11:19] LABS: CKMB 14.2 ng/mL (0-6.6)
--- NOTE | 2019-05-23 11:21 | RAD ---
Exam: Chest one view HISTORY:Altered mental status Comparison: 05/18/2019 FINDINGS: Cardiac silhouette:Cardiomegaly Aorta: Unremarkable Pulmonary vessels: Normal Costophrenic angles: Clear LUNGS: No masses or consolidation. Pneumothorax: None Osseous abnormalities: None IMPRESSION: 1. Cardiomegaly. No evidence of congestive heart failure.
[2019-05-23 13:44] LABS: Bilirubin Negative (Negative); Blood, Urine Negative (Negative); Clarity Clear (Clear); Glucose, Urine (Dipstick) Normal (Negative); Leukocyte Negative Leu/uL (Negative); Nitrite Negative (Negative); Protein, Urine (Dipstick) 20 mg/dL (Neg-Trace); Urobilinogen Normal mg/dL (Less than 2)
[2019-05-23 14:17] LABS: CKMB 14.1 ng/mL (0-6.6); Critical Call CKMB RESULT DECREASING
== END 2019-05-23 14:35 ==
LOC: ERS 09:47
DX: S00.31XA Abrasion of nose, initial encounter (principal); F03.90 Unspecified dementia, unspecified severity, without behavioral disturbance, psychotic disturbance, mood disturbance, and anxiety; E78.00 Pure hypercholesterolemia, unspecified; I10 Essential (primary) hypertension; Z79.899 Other long term (current) drug therapy; W18.30XA Fall on same level, unspecified, initial encounter
CPT/HCPCS: 36415; 70450; 71045; 80053; 81003; 82553; 84484; 85025; 93005; 96360

== ENCOUNTER 2019-05-27 18:16 | Emergency (ER) | payer MEDICARE, BC ==
--- NOTE | 2019-05-27 18:51 | RAD ---
XR Chest 1 View Portable History: Chest pain Comparison: Radiograph May 23, 2019 Findings: Exam is limited due to rightward patient rotation. Lungs are clear. No pneumothorax or effu lisa. Heart size is enlarged. Impression: Cardiomegaly. No acute intrathoracic abnormality.
[2019-05-27 18:52] LABS: #Eosinphils 0.1 thou/uL (0.0-0.7); #Lymphocytes 1.4 thou/uL (1.20-3.40); #Monocytes 0.4 thou/uL (0.11-0.59); #Neutrophils 3.6 thou/uL (1.40-6.50); %Basophils 0.7 % (0.0-1.0); %Eosinophils 2.5 % (0.0-10.0); %Lymphocytes 25.1 % (21.0-51.0); %Monocytes 7.9 % (0.0-10.0); %Neutrophils 63.9 % (42.0-75.0); Hemoglobin 12.1 g/dL (14.0-18.0); Mean Corpuscular HGB CONC 34.3 g/dL (32.0-36.0); Mean Corpuscular Hemoglobin 29.8 pg (27.0-31.0); Mean Corpuscular Volume 86.9 fL (78.0-98.0); Mean Platelet Volume 7.1 fL (7.4-10.4); Platelet Count 186 thou/uL (130-400); RBC Distribution Width 11.8 % (11.5-14.5); Red Blood Cell (RBC) Count 4.05 mill/uL (4.70-6.10); White Blood Cell (WBC) Count 5.6 thou/uL (4.8-10.8)
[2019-05-27 19:19] LABS: ALT (SGPT) 24 U/L (8-55); AST (SGOT) 22 U/L (5-34); Albumin 3.6 g/dL (3.4-4.8); Alkaline Phosphatase 87 U/L (40-110); Anion Gap 11 mmol/L (10-20); BUN (Urea Nitrogen) 22 mg/dL (8.4-25.7); Bilirubin, Total 0.4 mg/dL (0.2-1.2); Calc. Creatinine Clearance 0 mL/min (70-130); Calcium 8.7 mg/dL (7.8-10.44); Carbon Dioxide 28 mmol/L (23-31); Chloride 107 mmol/L (98-107); Estimated GFR-MDRD 83; Globulin 2.3 g/dL (2.4-3.5); Glucose 118 mg/dL (83-110); Potassium 4.2 mmol/L (3.5-5.1); Protein, Total 5.9 g/dL (5.8-8.1); Sodium 142 mmol/L (136-145)
--- NOTE | 2019-05-27 19:23 | CT ---
CT OF BRAIN PERFORMED WITHOUT CONTRAST ENHANCEMENT: 05/27/19 HISTORY: Slurred speech. History of strokes. COMPARISON: 05/23/19 study. There is generalized ventricular and sulcal prominence. There is attenuation of the perivent ricular white matter consistent with chronic white matter change. No signs of intracerebral hemorrhag e or extra-axial fluid collections. The mastoid air cells are clear. There is some minimal ethmoid ai r cell disease and some mild right maxillary sinus changes. IMPRESSION: No acute intracranial abnormalities. POS: [facility]
[2019-05-27 19:52] LABS: PTT 25.3 SEC (22.9-36.1); Prothrombin Time 13.3 SEC (12.0-14.7)
[2019-05-27 21:53] LABS: Troponin I 0.022 ng/mL (< 0.028)
== END 2019-05-27 22:38 | disposition home or self-care (01) ==
LOC: ERS 18:16
DX: R07.9 Chest pain, unspecified (principal); E78.00 Pure hypercholesterolemia, unspecified; F03.90 Unspecified dementia, unspecified severity, without behavioral disturbance, psychotic disturbance, mood disturbance, and anxiety; Z79.82 Long term (current) use of aspirin; Z79.899 Other long term (current) drug therapy
CPT/HCPCS: 36415; 70450; 71045; 80053; 84484; 85025; 85610; 85730; 93005; 94760

== ENCOUNTER 2019-07-22 11:27 | Observation (INO) | payer MEDICARE, BC ==
--- NOTE | 2019-07-22 11:55 | RAD ---
Exam: Chest one view HISTORY:Altered mental status Comparison: 05/27/2019 FINDINGS: Cardiac silhouette:Upper normal cardiac silhouette. Aorta: Unremarkable Pulmonary vessels: Normal Costophrenic angles: Clear LUNGS: Diminished lung volumes, likely due to a poor inspiratory effort. Predominantly patchy interst itial opacities. There is obscuration of the lateral aspect of the left hemidiaphragm which may represent parenchymal changes. Pneumothorax: None Osseous abnormalities: None IMPRESSION: 1. Diminished lung volumes likely due to poor history effort. Patchy interstitial opacities may repre sent atelectasis. Infiltrate cannot be excluded. 2. Partial obscuration of the lateral left hemidiaphragm, possibly due to parenchymal changes. Contin ued surveillance is recommended
[2019-07-22 12:38] LABS: #Eosinphils 0.1 thou/uL (0.0-0.7); #Lymphocytes 1.3 thou/uL (1.20-3.40); #Monocytes 0.5 thou/uL (0.11-0.59); #Neutrophils 4.8 thou/uL (1.40-6.50); %Basophils 0.7 % (0.0-1.0); %Eosinophils 2.1 % (0.0-10.0); %Lymphocytes 19.4 % (21.0-51.0); %Monocytes 7.9 % (0.0-10.0); %Neutrophils 69.9 % (42.0-75.0); Hemoglobin 13.9 g/dL (14.0-18.0); Mean Corpuscular HGB CONC 34.6 g/dL (32.0-36.0); Mean Corpuscular Volume 86.9 fL (78.0-98.0); Platelet Count 213 thou/uL (130-400); RBC Distribution Width 11.8 % (11.5-14.5); Red Blood Cell (RBC) Count 4.64 mill/uL (4.70-6.10); White Blood Cell (WBC) Count 6.9 thou/uL (4.8-10.8)
--- NOTE | 2019-07-22 12:48 | CT ---
EXAM: CT brain without contrast HISTORY: Altered mental status and dementia; headache COMPARISON: 05/27/2019 TECHNIQUE: Multiple contiguous axial images were obtained and a CT of the brain without contrast. FINDINGS: There are scattered hypodensities in the subcortical and periventricular white matter consi stent with small vessel ischemic disease. Diffuse cerebral atrophy is seen with ex vacuo dilatation of the lateral ventricles. There is no evidence of hydrocephalus, intracranial hemorrhage, or extra-a xial fluid collection. The calvarium and overlying soft tissues are unremarkable. The visualized paranasal sinuses and masto id air cells are well aerated. IMPRESSION: No evidence of acute intracranial abnormality
[2019-07-22 13:00] LABS: Acetaminophen Less than 6.0 mcg/mL (10.0-30.0); Alcohol Less than 10 mg/dL (Less than 10); Salicylate Less than 8.0 mg/dL (15.0-30.0)
[2019-07-22 13:04] LABS: ALT (SGPT) 11 U/L (8-55); AST (SGOT) 14 U/L (5-34); Alkaline Phosphatase 91 U/L (40-110); Anion Gap 13 mmol/L (10-20); BUN (Urea Nitrogen) 17 mg/dL (8.4-25.7); Bilirubin, Total 0.3 mg/dL (0.2-1.2); CK (CPK) 125 U/L (30-200); Calc. Creatinine Clearance 0 mL/min (70-130); Calcium 9.1 mg/dL (7.8-10.44); Carbon Dioxide 26 mmol/L (23-31); Chloride 104 mmol/L (98-107); Estimated GFR-MDRD 90; Globulin 2.5 g/dL (2.4-3.5); Glucose 97 mg/dL (83-110); Lipase 19 U/L (8-78); Potassium 4.4 mmol/L (3.5-5.1); Protein, Total 6.5 g/dL (5.8-8.1); Sodium 139 mmol/L (136-145)
[2019-07-22 13:40] LABS: Amphetamine Not Detected (NotDetected); Barbiturates Screen Not Detected (NotDetected); Benzodiazepine Screen Not Detected (NotDetected); Cocaine Metabolite Screen Not Detected (NotDetected); Medtox Control Line Valid? VALID (VALID); Medtox Reader # READER 1; Methadone Not Detected (NotDetected); Methamphetamine Not Detected (NotDetected); Opiate Screen Not Detected (NotDetected); Oxycodone Screen Not Detected (NotDetected); Phencyclidine (PCP) Not Detected (NotDetected); THC/Cannabinoid Screen Not Detected (NotDetected); Tricyclic Screen Not Detected (NotDetected)
[2019-07-22 13:42] LABS: Bacteria/HPF None Seen HPF (None Seen); Bilirubin Negative (Negative); Blood, Urine 3+ (Negative); Clarity Clear (Clear); Glucose, Urine (Dipstick) Normal (Negative); Leukocyte Negative Leu/uL (Negative); Nitrite Negative (Negative); Protein, Urine (Dipstick) Negative (Neg-Trace); RBC/HPF Greater than 50 HPF (0-3); Squamous Epithelial None Seen HPF (0-3); Urobilinogen Normal mg/dL (Less than 2); WBC/HPF 0-3 HPF (0-3)
[2019-07-22] MEDS ORDERED: Haloperidol Lactate 5 MG/ML VIAL ONE (14:07)
[2019-07-22] MEDS ORDERED: Labetalol HCl 100 MG/20 ML VIAL SLOW IVP PRN (14:51)
[2019-07-22] MEDS ORDERED: Acetaminophen 325 MG TAB PO PRN (14:53)
--- NOTE | 2019-07-22 14:58 | PDOC.HHP ---
Hospitalist HPI - History of Present Illness Generalized body weakness History of Present Illness: Mr. Jay is a 74 y/o male with PMH of dementia with behavioral disturbance, who presents to ED with generalized body weakness. Majority of history obtained from certified orthoptist and daughter. They state that after breakfast this AM he started to sweat and could not get up because he was weak. They state usually when this happens its because he is sick. At baseline, he has dementia and lives in an assisted living halfway home. No reports of cough, fever, chills, shortness of breath, chest pain, recent sick contacts, or other symptoms. In the ED, BP > 190 systolic and patient is at his baseline as reported by certified orthoptist. WBC count normal. CXR suggestive of atelectasis vs. possible infiltrate. No history of prior pneumonia or UTI as per certified orthoptist. 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 Gastrointestinal: reports: no pertinent history Heme/Onc: reports: no pertinent history Hepatobiliary: reports: no pertinent history Psych: reports: no pertinent history Musculoskeletal: reports: no pertinent history Rheumatologic: reports: no pertinent history Infectious Disease: reports: no pertinent history ENT: reports: no pertinent history Renal/: reports: no pertinent history Endocrine: reports: no pertinent history Dermatology: reports: no pertinent history - Past Surgical History Past Surgical History: reports: no pertinent history - Family History Family History: reports: no pertinent history - Social History Alcohol: reports: None Drugs: reports: none Living Situation: Care Home - Exam General Appearance: awake alert Eye: PERRL, anicteric sclera ENT: normocephalic atraumatic, no oropharyngeal lesions, moist mucosa Neck: supple, symmetric, no JVD, no thyromegaly, no lymphadenopathy, no carotid bruit Heart: RRR, no murmur, no gallops, no rubs, normal peripheral pulses Respiratory: CTAB, no wheezes, no rales, no ronchi, normal chest expansion, no tachypnea, normal percussion Gastrointestinal: soft, non-tender, non-distended, normal bowel sounds, no palpable masses, no hepatomegaly, no splenomegaly, no bruit Extremities: no cyanosis, no clubbing, no edema Skin: normal turgor, no lesions, no rashes Neurological: cranial nerve grossly intact, normal sensation to touch, no weakness, no focal deficits, no new deficit Musculoskeletal: normal tone, normal strength, no muscle wasting Psychiatric: normal affect, normal behavior, flat affect Hospitalist Results - Labs Result Diagrams: 07/22/19 12:04 07/22/19 12:04 Lab results: WBC 6.9 thou/uL (4.8-10.8) 07/22/19 12:04 Hgb 13.9 g/dL (14.0-18.0) L 07/22/19 12:04 Hct 40.3 % (42.0-52.0) L 07/22/19 12:04 MCV 86.9 fL (78.0-98.0) 07/22/19 12:04 Plt Count 213 thou/uL (130-400) 07/22/19 12:04 Neutrophils % 69.9 % (42.0-75.0) 07/22/19 12:04 Sodium 139 mmol/L (136-145) 07/22/19 12:04 Potassium 4.4 mmol/L (3.5-5.1) 07/22/19 12:04 Chloride 104 mmol/L (98-107) 07/22/19 12:04 Carbon Dioxide 26 mmol/L (23-31) 07/22/19 12:04 BUN 17 mg/dL (8.4-25.7) 07/22/19 12:04 Creatinine 0.84 mg/dL (0.7-1.3) 07/22/19 12:04 Glucose 97 mg/dL (83-110) 07/22/19 12:04 Lactic Acid 0.9 mmol/L (0.5-2.2) 07/22/19 12:04 Calcium 9.1 mg/dL (7.8-10.44) 07/22/19 12:04 Total Bilirubin 0.3 mg/dL (0.2-1.2) 07/22/19 12:04 AST 14 U/L (5-34) 07/22/19 12:04 ALT 11 U/L (8-55) 07/22/19 12:04 Alkaline Phosphatase 91 U/L (40-110) 07/22/19 12:04 Creatine Kinase 125 U/L (30-200) 07/22/19 12:04 Troponin I Less than 0.010 ng/mL (< 0.028) 07/22/19 12:04 B-Natriuretic Peptide 22.7 pg/mL (0-100) 07/22/19 12:04 Serum Total Protein 6.5 g/dL (5.8-8.1) 07/22/19 12:04 Albumin 4.0 g/dL (3.4-4.8) 07/22/19 12:04 Lipase 19 U/L (8-78) 07/22/19 12:04 Urine Ketones Negative mg/dL (Negative) 07/22/19 13:04 Urine Blood 3+ (Negative) A 07/22/19 13:04 Urine Nitrite Negative (Negative) 07/22/19 13:04 Ur Leukocyte Esterase Negative Yakov/uL (Negative) 07/22/19 13:04 Urine RBC Greater than 50 HPF (0-3) A 07/22/19 13:04 Urine WBC 0-3 HPF (0-3) 07/22/19 13:04 Ur Squamous Epith Cells None Seen HPF (0-3) 07/22/19 13:04 Urine Bacteria None Seen HPF (None Seen) 07/22/19 13:04 - Radiology Interpretation Chest x-ray Status: report reviewed by mi Hospitalist H&P A/P - Problem (1) Acute encephalopathy Code(s): G93.40 - ENCEPHALOPATHY, UNSPECIFIED Status: Acute (2) Hypertensive urgency Code(s): I16.0 - HYPERTENSIVE URGENCY Status: Acute (3) Dementia Code(s): F03.90 - UNSPECIFIED DEMENTIA WITHOUT BEHAVIORAL DISTURBANCE Status: Chronic Qualifiers: Dementia type: Alzheimer's disease Dementia behavioral disturbance: with behavioral disturbance - Plan Plan: Admit for medical observation. Continue home medications. Risperdal (at this dose) may be contributing to some of his confusion. Will acquire outside records. Labetalol 10mg PRN for systolic > 180, for HTN urgency CXR suggestive of atelectasis vs. infiltrate, less likely infectious etiology ( no clinical sxs, no biochemical abnormalities), continue incentive spirometry for now, would avoid abx unless procalcitonin suggestive of a possible infectious process PT/OT eval DVT Prophylaxis: SCDs Code Status: DNR, as discussed with daughter Dispo: Admit for medical obs. Correct HTN urgency. Monitor for possible infection vs. metabolic causes of encephalopathy.
[2019-07-22] MEDS ORDERED: risperiDONE 1 MG TAB ONE (17:22)
[2019-07-22] MEDS ORDERED: Sodium Chloride 0.9% 1,000 ML IV SCH (18:53)
[2019-07-22] MEDS ORDERED: Ondansetron PF 4 MG/2 ML Vial IVP PRN (18:53)
[2019-07-22] MEDS ORDERED: Ondansetron ODT 4 MG TAB SL PRN (18:53)
[2019-07-22] MEDS ORDERED: Donepezil HCl 10 MG TAB PO SCH (21:00)
[2019-07-22] MEDS ORDERED: Atorvastatin Calcium 10 MG TAB PO SCH (21:00)
[2019-07-22] MEDS ORDERED: risperiDONE 1 MG TAB PO SCH (21:00)
[2019-07-22 22:25] VITALS: BMI 27.4
[2019-07-23] MEDS: risperiDONE 0.25 MG TAB PO SCH ×2 (08:00→12:07)
[2019-07-23] MEDS ORDERED: Aspirin 325 MG TAB PO SCH (09:00)
[2019-07-23] MEDS ORDERED: Haloperidol 1 MG TAB PO PRN (09:00)
[2019-07-23 11:13] VITALS: BP 133/73; TEMP 98
--- NOTE | 2019-07-23 15:19 | PDOC.HOSPP ---
- Subjective Encounter Date: 07/23/19 Encounter Time: 15:18 Subjective: Mr. Jay was seen today in follow-up of headache. He appears to beat his baseline. His daughter is at the bedside who agrees. - Objective Vital Signs & Weight: Vital Signs (12 hours) Temp Pulse Resp BP BP Pulse Ox 07/23/19 11:12 98.0 F 58 L 18 133/73 96 07/23/19 08:00 97.9 F 64 18 122/77 95 07/23/19 07:45 97.9 F 64 18 122/77 95 07/23/19 07:00 94 L Weight Weight 202 lb 8 oz Result Diagrams: 07/22/19 12:04 07/22/19 12:04 Hospitalist ROS - Medication Medications: Active Medications Generic Name Dose Route Start Last Admin Trade Name Freq PRN Reason Stop Dose Admin Aspirin 325 mg 07/23/19 09:00 07/23/19 08:00 Aspirin PO 325 mg DAILY DOYLE Administration Atorvastatin Calcium 10 mg 07/22/19 21:00 07/22/19 21:33 Lipitor PO 10 mg HS DOYLE Administration Donepezil HCl 10 mg 07/22/19 21:00 07/22/19 21:33 Aricept PO 10 mg HS DOYLE Administration Memantine 10 mg 07/22/19 21:00 07/23/19 08:00 Namenda PO 10 mg BID DOYLE Administration Risperidone 1 mg 07/22/19 21:00 07/22/19 21:38 Risperidone PO 1 mg HS DOYLE Administration Risperidone 0.5 mg 07/23/19 09:00 07/23/19 12:07 Risperidone PO 0.5 mg 0900,1200 DOYLE Administration Sodium Chloride 10 ml 07/22/19 21:00 07/23/19 08:01 Flush - Normal Saline IVF 10 ml Q12HR DOYLE Administration - Exam Eye: PERRL, anicteric sclera Heart: RRR, no murmur, no gallops, no rubs, normal peripheral pulses Respiratory: CTAB, no wheezes, no rales, no ronchi, normal chest expansion, no tachypnea, normal percussion Gastrointestinal: soft, non-tender, non-distended, normal bowel sounds, no palpable masses, no hepatomegaly, no splenomegaly Extremities: no cyanosis, no clubbing, no edema Hosp A/P (1) NPH (normal pressure hydrocephalus) Code(s): G91.2 - (IDIOPATHIC) NORMAL PRESSURE HYDROCEPHALUS Status: Acute (2) Dementia Code(s): F03.90 - UNSPECIFIED DEMENTIA WITHOUT BEHAVIORAL DISTURBANCE Status: Chronic Qualifiers: Dementia type: Alzheimer's disease Dementia behavioral disturbance: with behavioral disturbance (3) Hypertension Code(s): I10 - ESSENTIAL (PRIMARY) HYPERTENSION Status: Chronic - Plan * Dementia- stable * HTN- blood pressure is controlled * Stable for discharge home
--- NOTE | 2019-07-23 16:03 | DIS ---
DATE OF ADMISSION: 07/22/2019 DATE OF DISCHARGE: 07/23/2019 PRIMARY CARE PHYSICIAN: Dr. Sky Grant. DISCHARGE DIAGNOSES: 1. Acute metabolic encephalopathy. 2. Dementia. 3. Hypertension. DISCHARGE MEDICATIONS: The same and include; 1. Risperdal 0.5 mg twice a day and 1 mg at bedtime. 2. Pravachol 40 mg at bedtime. 3. Namenda 10 mg twice daily. 4. Donepezil 10 mg at bedtime. 5. Aspirin 325 mg daily. PROCEDURES DONE DURING THIS ADMISSION: The patient had a CT scan of the brain showing no evidence of any acute intracranial abnormalities. CODE STATUS: DNAR. ALLERGIES: TO PENICILLINS. HOSPITAL COURSE: Mr. Jay is a pleasant 74-year-old gentleman, who was admitted to the hospital with altered mental status, generalized weakness, and elevated blood pressure. He was placed in observation as a precaution, and his blood pressure actually normalized without any additional change in medications. CT scan of the brain was negative and lab work including urinalysis, CBC, and chemistry were all essentially normal. The patient in the following day was back to his baseline and was subsequently able to be discharged home. Job ID: [id number]
== END 2019-07-23 17:04 | disposition home or self-care (01) ==
LOC: ERS 11:27 → T4-B 20:02
PROVIDERS: ADMIT Internal Medicine; ATTEND Internal Medicine
DX: G93.41 Metabolic encephalopathy (principal); G30.9 Alzheimer's disease, unspecified; F02.81 Dementia in other diseases classified elsewhere, unspecified severity, with behavioral disturbance; I16.0 Hypertensive urgency; I10 Essential (primary) hypertension; G91.2 (Idiopathic) normal pressure hydrocephalus; Z66 Do not resuscitate; Z79.82 Long term (current) use of aspirin; Z79.899 Other long term (current) drug therapy; Z88.0 Allergy status to penicillin
CPT/HCPCS: 70450; 71045; 80053; 80306; 80307; 82550; 83605; 83690; 83880; 84145; 84484; 85025; 87040; 87086; 87804 ×2; 93005; 96361; 96365; 96366; 96372; 97139; 99285; G0378 ×3; 36415; 81003; 81015; J1630; J1956

== ENCOUNTER 2019-08-22 16:13 | Emergency (ER) | payer MEDICARE, BC ==
[2019-08-22 20:18] LABS: Bacteria/HPF None Seen HPF (None Seen); Bilirubin Negative (Negative); Blood, Urine Negative (Negative); Clarity Clear (Clear); Glucose, Urine (Dipstick) Normal (Negative); Leukocyte 25 Leu/uL (Negative); Nitrite Negative (Negative); Protein, Urine (Dipstick) Negative (Neg-Trace); RBC/HPF 0-3 HPF (0-3); Squamous Epithelial None Seen HPF (0-3); WBC/HPF 0-3 HPF (0-3)
[2019-08-22 20:42] LABS: #Basophils 0.1 thou/uL (0.0-0.2); #Eosinphils 0.1 thou/uL (0.0-0.7); #Lymphocytes 1.8 thou/uL (1.20-3.40); #Monocytes 0.7 thou/uL (0.11-0.59); %Basophils 0.8 % (0.0-1.0); %Eosinophils 1.9 % (0.0-10.0); %Lymphocytes 23.4 % (21.0-51.0); %Monocytes 8.5 % (0.0-10.0); %Neutrophils 65.4 % (42.0-75.0); Hemoglobin 14.6 g/dL (14.0-18.0); Mean Corpuscular HGB CONC 33.3 g/dL (32.0-36.0); Mean Corpuscular Hemoglobin 29.3 pg (27.0-31.0); Mean Corpuscular Volume 87.9 fL (78.0-98.0); Mean Platelet Volume 6.5 fL (7.4-10.4); Platelet Count 232 thou/uL (130-400); RBC Distribution Width 11.8 % (11.5-14.5); White Blood Cell (WBC) Count 7.7 thou/uL (4.8-10.8)
[2019-08-22 20:47] LABS: Amphetamine Not Detected (NotDetected); Barbiturates Screen Not Detected (NotDetected); Benzodiazepine Screen Detected (NotDetected); Cocaine Metabolite Screen Not Detected (NotDetected); Medtox Control Line Valid? VALID (VALID); Medtox Reader # READER 4; Methadone Not Detected (NotDetected); Methamphetamine Not Detected (NotDetected); Opiate Screen Not Detected (NotDetected); Oxycodone Screen Not Detected (NotDetected); Phencyclidine (PCP) Not Detected (NotDetected); THC/Cannabinoid Screen Not Detected (NotDetected); Tricyclic Screen Not Detected (NotDetected)
[2019-08-22] MEDS ORDERED: risperiDONE 1 MG TAB ONE (20:51)
[2019-08-22 21:07] LABS: Acetaminophen Less than 6.0 mcg/mL (10.0-30.0); Alcohol Less than 10 mg/dL (Less than 10); Salicylate Less than 8.0 mg/dL (15.0-30.0)
[2019-08-22 21:10] LABS: ALT (SGPT) 25 U/L (8-55); AST (SGOT) 37 U/L (5-34); Albumin 4.1 g/dL (3.4-4.8); Alkaline Phosphatase 89 U/L (40-110); Anion Gap 9 mmol/L (10-20); BUN (Urea Nitrogen) 17 mg/dL (8.4-25.7); Bilirubin, Total 0.4 mg/dL (0.2-1.2); Calc. Creatinine Clearance 0 mL/min (70-130); Calcium 9.2 mg/dL (7.8-10.44); Carbon Dioxide 31 mmol/L (23-31); Chloride 103 mmol/L (98-107); Estimated GFR-MDRD 81; Globulin 2.6 g/dL (2.4-3.5); Glucose 92 mg/dL (83-110); Potassium 4.1 mmol/L (3.5-5.1); Protein, Total 6.7 g/dL (5.8-8.1); Sodium 139 mmol/L (136-145)
== END 2019-08-22 21:30 | disposition home or self-care (01) ==
LOC: ERS 16:13
DX: R41.0 Disorientation, unspecified (principal); E78.5 Hyperlipidemia, unspecified; E78.00 Pure hypercholesterolemia, unspecified; F03.91 Unspecified dementia, unspecified severity, with behavioral disturbance; Z79.82 Long term (current) use of aspirin; Z79.899 Other long term (current) drug therapy
CPT/HCPCS: 36415; 80053; 80306; 80307; 81003; 81015; 84443; 85025; 99284

== ENCOUNTER 2019-10-16 17:50 | Emergency (ER) | payer MEDICARE, BC ==
[2019-10-16] MEDS ORDERED: Ondansetron PF 4 MG/2 ML Vial ONE (18:34)
[2019-10-16 18:38] LABS: #Basophils 0.1 thou/uL (0.0-0.2); #Eosinphils 0.1 thou/uL (0.0-0.7); #Lymphocytes 1.5 thou/uL (1.20-3.40); #Monocytes 0.7 thou/uL (0.11-0.59); #Neutrophils 7.3 thou/uL (1.40-6.50); %Basophils 0.7 % (0.0-1.0); %Eosinophils 0.7 % (0.0-10.0); %Lymphocytes 15.1 % (21.0-51.0); %Monocytes 6.9 % (0.0-10.0); %Neutrophils 76.5 % (42.0-75.0); Hemoglobin 14.1 g/dL (14.0-18.0); Mean Corpuscular HGB CONC 33.6 g/dL (32.0-36.0); Mean Corpuscular Hemoglobin 29.5 pg (27.0-31.0); Mean Platelet Volume 6.5 fL (7.4-10.4); Platelet Count 336 thou/uL (130-400); RBC Distribution Width 11.4 % (11.5-14.5); Red Blood Cell (RBC) Count 4.77 mill/uL (4.70-6.10); White Blood Cell (WBC) Count 9.6 thou/uL (4.8-10.8)
--- NOTE | 2019-10-16 18:45 | RAD ---
ONE VIEW ABDOMEN: History: Vomiting Comparison: None FINDINGS: Limited evaluation due to body habitus and portable technique. Possible hiatal hernia. Bowel gas evelyn do is nonspecific. No evidence of small bowel distention or dilatation. No pneumoperitoneum on the s upine projection. IMPRESSION: 1. Limited evaluation due to portable technique and body habitus. Nonspecific bowel gas pattern. 2. Probable hiatal hernia, incompletely evaluated. Further evaluation with abdomen and pelvic CT if c linically warranted. Hiatal hernia was demonstrated on a CT angiogram of the chest performed on 05-16. POS: PPP
[2019-10-16 19:02] LABS: ALT (SGPT) 19 U/L (8-55); AST (SGOT) 19 U/L (5-34); Albumin 3.8 g/dL (3.4-4.8); Alkaline Phosphatase 74 U/L (40-110); Anion Gap 14 mmol/L (10-20); BUN (Urea Nitrogen) 19 mg/dL (8.4-25.7); Bilirubin, Total 0.3 mg/dL (0.2-1.2); Calc. Creatinine Clearance 0 mL/min (70-130); Calcium 9.1 mg/dL (7.8-10.44); Carbon Dioxide 27 mmol/L (23-31); Chloride 100 mmol/L (98-107); Estimated GFR-MDRD 70; Globulin 3.3 g/dL (2.4-3.5); Glucose 114 mg/dL (83-110); Lipase 25 U/L (8-78); Potassium 4.5 mmol/L (3.5-5.1); Protein, Total 7.1 g/dL (5.8-8.1); Sodium 136 mmol/L (136-145)
== END 2019-10-16 19:55 | disposition home or self-care (01) ==
LOC: ERS 17:50
DX: R11.10 Vomiting, unspecified (principal); E78.00 Pure hypercholesterolemia, unspecified; I25.10 Atherosclerotic heart disease of native coronary artery without angina pectoris; Z79.82 Long term (current) use of aspirin; Z79.899 Other long term (current) drug therapy
CPT/HCPCS: 74018; 80053; 83690; 85025; 96361; 96374; J2405